=== PATIENT | male | born 1950 | race Caucasian/White ===

== ENCOUNTER 2017-06-24 11:23 | Emergency (ER) | payer MEDICARE, BC ==
[~2017-06-24] VITALS: Ht 185.4 cm; Wt 80.5 kg
[~2017-06-24 11:23] MED LIST: CARV25TA PO; PRIM50TA PO
--- NOTE | 2017-06-24 12:34 | RAD ---
HAND BILAT 3V, WRIST BILAT 3V History:Pain after fall today Comparison: None Hands: Findings:3 views of the bilateral hands are submitted. No acute fracture is identified. Impression 1. No acute fracture is identified. Wrists: 3 views of the bilateral wrists are submitted. No acute fracture is identified. Impression: 1.No acute fracture is identified.
--- NOTE | 2017-06-24 13:47 | RAD ---
CT HEAD AND CERVICAL SPINE WO History: Fall today, cervical spine pain Technique: Noncontrast CT imaging was performed of the head and cervical spine, multiplanar reconstruction images submitted. Exposure: One or more of the following individualized dose reduction techniques were utilized for this exam: 1. Automated exposure control.2. Adjustment of the mA and/or KV according to patient size.3. Use of iterative reconstruction technique. Comparison: Head CT 12/11/2015 Findings: Head CT: As seen on axial image 17 series 2, there is a small round 0.5 cm focus of relative hyperdensity at the anterolateral margin of the left frontal horn, not seen on previous exam. There is no dependent hemorrhage in the lateral ventricles. Navas-white differentiation of the major vascular territories is preserved. There is no intra-axial mass effect, midline shift, extra axial fluid collection. There is again multifocal ill-defined low-density of the supratentorial white matter bilaterally. No acute calvarial abnormality is identified. Mastoid air cells are aerated. There is some patchy ethmoid air cell mucosal thickening. Cervical spine CT: Cervical vertebral body stature and AP alignment are preserved. No acute cervical spine fracture is identified. There is more advanced degenerative disc disease C5-C6, to a lesser C6-7, minimally at C4-5. There is mild spondylosis greatest at C5-C6. There is uncovertebral degenerative change greatest C5-C6 and C6-7. There is moderate narrowing of the right C6-7 neural foramen, mild narrowing on the right at C5-6. There is atherosclerotic calcification of carotid arteries in the neck bilaterally. Impression 1. There is a small 0.5 cm focus of hyperdensity along the anterolateral aspect of the left frontal horn. There is no significant dependent hemorrhage in the lateral ventricles. Small hyperdense mass is possible. Small focus of hemorrhage cannot be excluded although seems less likely given location. Follow-up MRI evaluation may be beneficial. 2. Ill-defined low-density of the supratentorial white matter bilaterally is probably due to chronic microvascular ischemic disease in a patient of this age. 3. No acute cervical spine fracture is identified. Results were called to Dr. Mehta 13:42 06/24/2017.
[2017-06-24] MEDS ORDERED: ACET325T9 PO (14:08)
[2017-06-24] MEDS ORDERED: IBUP400T18 PO (14:08)
--- NOTE | 2017-06-24 14:09 | PHYS DOC ---
Past History Past Medical History: High Cholesterol, Hypertension, Other Past Surgical History: Appendectomy Smoking: Non-smoker Alcohol Use: None Drug Use: None Adult General Chief Complaint Chief Complaint: MECHANICAL FALL HPI HPI 66-year-old male presenting to the emergency department after injuring himself while running a 5K in [place] today. He complains of injury to his hands and wrists after falling. He did hit his head on the right side of his restorationism but denies loss of consciousness. He denies neck pain. He denies any other acute traumatic injuries. He does have pain in his hand that is sharp shooting throbbing nonradiating intermittent and without a leading factors. He denies numbness weakness or tingling. Review of systems is negative for chest pain shortness of breath abdominal pain or neck pain. All other review of systems is negative unless otherwise noted in history of present illness. ED course: 66-year-old male presenting to the emergency department today with the minor head injury and injury to his hands and wrist. Vital signs unremarkable. On examination of the patient's hands. He has mild swelling and ecchymosis bilaterally on the lateral portion of his volar palm. Minimal abrasions present. Normal range of motion of the wrists. Nontender scaphoid bilaterally. Primarily the patient's tenderness is on the lateral proximal portion of the metacarpals. Nontender more proximally. Nontender elbow with normal range of motion bilaterally. Palpable pulse with 2 second cap refill with normal sensation and motor function of the hands. Patient is a small abrasion on the right temporal region. He is awake alert and neurologically intact. Nontender neck. Normal range of motion of the neck. X-rays of the hands and wrist obtained which were unremarkable for acute fracture. Head neck CT obtained. Discussed the head CT reading with the radiologist. He sees a hyperdensity in an atypical location for bleed. He recommends MRI. I had a long risk-benefit discussion with the patient and offered him transfer by ambulance to [facility] hospital for MRI and neurology consultation. Patient declines. He prefers to follow-up with primary care physician and obtain outpatient MRI. The patient was then discharged home in stable condition to follow up with their primary care physician over the next 2-3 days. They were to return if their symptoms worsened or if they were concerned for any reason. [id number] discharge instructions and return precautions were given. Patient's questions were answered to their satisfaction. Patient is comfortable plan. Review of Systems Review of Systems SEE ABOVE. Current Medications Current Medications Current Medications Medications (Trade) Dose Ordered Sig/Kendra Start Time Stop Time Status Last Admin Dose Admin Acetaminophen (Tylenol) 650 mg 1X ONCE 06/24/17 14:15 06/24/17 14:16 UNV Allergies Allergies Allergies Coded Allergies Type Severity Reaction Last Updated Verified No Known Drug Allergies 11/11/13 No Physical Exam Physical Exam SEE ABOVE Constitutional: Well developed, well nourished, no acute distress, non-toxic appearance. [] HENT: Normocephalic, bilateral external ears normal, oropharynx moist, no oral exudates, nose normal. []SEE ABOVE Eyes: PERRLA, EOMI, conjunctiva normal, no discharge. [] Neck: Normal range of motion, no tenderness, supple, no stridor. [] Cardiovascular:Heart rate regular rhythm, no murmur [] Lungs & Thorax: Bilateral breath sounds clear to auscultation [] Abdomen: Bowel sounds normal, soft, no tenderness, no masses, no pulsatile masses. Skin: Warm, dry, no erythema, no rash. [] Back: No tenderness, no CVA tenderness. Extremities: No tenderness, no cyanosis, no clubbing, ROM intact, no edema. [] Neurologic: Mental status: Awake oriented and alert x3 Cranial nerves: Extraocular movements intact, eyebrows joseph bilaterally smile symmetric, uvula elevation, shoulder shrug intact, tongue protrusion normal DTRs: 2+ Sensation: equal and normal in all extremities Strength: 5/5 in upper and lower extremities bilaterally Psychologic: Affect normal, judgement normal, mood normal. [] EKG EKG [] Radiology/Procedures Radiology/Procedures [] Course & Med Decision Making Course & Med Decision Making Pertinent Labs and Imaging studies reviewed. (See chart for details) [] Dragon Disclaimer Dragon Disclaimer This electronic medical record was generated, in whole or in part, using a voice recognition dictation system. Departure Departure: Impression: Primary Impression: Head injury Additional Impression: Hand injury Disposition: ADMITTED INPATIENT Condition: STABLE Referrals: OFELIA LOUIS MD (PCP) Patient Instructions: Hand Injuries, [id number] Additional Instructions: Thank you for allowing us to participate in your care today. Followup with your primary care physician in 3 days if your symptoms do not improve. Call your Primary Doctor tomorrow and inform them of your visit today. If you do not have a primary care provider you can ask for a list of our primary care providers. Return to the emergency department you have any new or concerning findings. This should be evaluated by the primary care physician and any necessary consulting services for continued management within a few days after discharge. Return to emergency room if you have any new or concerning symptoms including but not limited to fever, chills, nausea, vomiting, intractable pain, any new rashes, chest pain, shortness of air, uncontrolled bleeding, difficulty breathing, and/or vision loss. Scripts Ibuprofen (IBUPROFEN) 400 Mg Tablet 1 TAB PO PRN Q8HRS Y for PAIN, #20 TAB Prov: ARIELLE GOMEZ MD 06/24/17 Acetaminophen (TYLENOL) 325 Mg Tablet 2 TAB PO PRN Q8HRS Y for PAIN, #10 TAB Prov: ARIELLE GOMEZ MD 06/24/17 Problem Qualifiers ARIELLE GOMEZ MD Jun 24, 2017 14:08
[2017-06-24] MEDS ORDERED: ACETAMINOPHEN 325 MG TABLET PO ONE (14:15)
[2017-06-24 14:23] VITALS: BP 144/78
== END 2017-06-24 14:23 | disposition other institution (70) ==
LOC: ER 11:23
DX: S09.90XA Unspecified injury of head, initial encounter (principal); S69.92XA Unspecified injury of left wrist, hand and finger(s), initial encounter; S69.91XA Unspecified injury of right wrist, hand and finger(s), initial encounter; E78.00 Pure hypercholesterolemia, unspecified; I10 Essential (primary) hypertension; W18.09XA Striking against other object with subsequent fall, initial encounter; Y93.02 Activity, running; Y99.8 Other external cause status; Y92.89 Other specified places as the place of occurrence of the external cause
CPT/HCPCS: 70450; 72125; 73110; 73130; 99285